=== PATIENT | male | born 2000 | race Hispanic/Latino ===

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

== ENCOUNTER 2021-04-10 22:20 | Emergency (ER) | payer MEDICAID ==
[~2021-04-10] VITALS: Ht 175.3 cm; Wt 93.0 kg
[2021-04-10 22:23] VITALS: BP 143/83
== END 2021-04-11 03:45 | disposition left against medical advice (07) ==
LOC: EDH 22:20
DX: R07.89 Other chest pain (principal); R05 Cough; Z53.21 Procedure and treatment not carried out due to patient leaving prior to being seen by health care provider

== ENCOUNTER 2021-04-12 01:22 | Emergency (ER) | payer MEDICAID ==
[~2021-04-12] VITALS: Ht 175.3 cm; Wt 93.4 kg
[2021-04-12 01:30] VITALS: BP 141/75
[2021-04-12 02:48] VITALS: BP 129/56
[2021-04-12 03:49] LABS: BASOPHILS % (AUTO) 0.6 % (0.0-5.0); EOSINOPHILS % (AUTO) 4.8 % (0.0-8.0); HEMATOCRIT 46.2 % (42-54); LYMPHOCYTES % (AUTO) 21.8 % (21.0-51.0); MEAN CORPUSCULAR HEMOGLOBIN 29.8 pg (27.0-33.0); MEAN CORPUSCULAR HGB CONC 32.7 g/dL (32.0-36.0); MEAN CORPUSCULAR VOLUME 91.1 fL (80-100); MONOCYTES % (AUTO) 11.2 % (3.0-13.0); NEUTROPHILS % (AUTO) 59.5 % (40.0-77.0); PLATELET COUNT (AUTO) 296 K/uL (130-400); RED BLOOD CELL COUNT(AUTO) 5.07 MIL/uL (4.50-6.20); RED CELL DISTRIBUTION WIDTH 12.7 % (11.0-15.5)
[2021-04-12 03:51] LABS: APPEARANCE,URINE Clear (CLEAR); BILIRUBIN,URINE Negative (NEGATIVE); COLOR,URINE Yellow (YELLOW); GLUCOSE, URINE (UA) Negative (NEGATIVE); KETONES,URINE Negative (NEGATIVE); LEUKOCYTE ESTERASE ,URINE Negative (NEGATIVE); NITRATE,URINE Negative (NEGATIVE); OCCULT BLOOD,URINE Negative (NEGATIVE); PH,URINE 6.5 (5.0-8.0); PROTEIN,URINE Negative (NEGATIVE)
[2021-04-12 03:55] LABS: CRP QUANTITATIVE 32.9 mg/L (0.00-9.0); POTASSIUM 4.2 mmol/L (3.5-5.1)
[2021-04-12 04:33] VITALS: BP 123/62
[2021-04-12] MEDS ORDERED: IOHEXOL-350 75 ML VIAL IV ONE (06:28)
[2021-04-12 07:33] VITALS: BP 117/60
[2021-04-12 10:44] VITALS: BP 119/85
== END 2021-04-12 10:45 | disposition home or self-care (01) ==
LOC: EDH 01:22
DX: R07.89 Other chest pain (principal); M54.6 Pain in thoracic spine; R10.9 Unspecified abdominal pain; J45.909 Unspecified asthma, uncomplicated; F17.200 Nicotine dependence, unspecified, uncomplicated; R06.02 Shortness of breath
CPT/HCPCS: 36415; 71045; 74018; 74177; 80048; 81003; 85025; 86140; 93005 ×2; 99285; J3490; Q9967

== ENCOUNTER 2021-12-08 23:09 | Emergency (ER) | payer MEDICAID ==
[~2021-12-08] VITALS: Ht 177.8 cm; Wt 95.3 kg
[2021-12-09 00:25] LABS: CREATININE 1.1 mg/dL (0.5-1.5); POTASSIUM 4.3 mmol/L (3.5-5.1)
[2021-12-09] MEDS: ONDANSETRON ODT 4MG TAB SL ONE (00:27)
[2021-12-09 00:29] LABS: ALBUMIN 4.3 g/dL (3.5-5.0); BILIRUBIN,TOTAL 0.4 mg/dL (0.2-1.0); TOTAL PROTEIN, SERUM 8.6 g/dL (6.0-8.3)
[2021-12-09 00:31] LABS: APPEARANCE,URINE Clear (CLEAR); BILIRUBIN,URINE Small (NEGATIVE); COLOR,URINE Dark Yellow (YELLOW); GLUCOSE, URINE (UA) Negative (NEGATIVE); KETONES,URINE Trace mg/dL (NEGATIVE); LEUKOCYTE ESTERASE ,URINE Negative (NEGATIVE); NITRATE,URINE Negative (NEGATIVE); OCCULT BLOOD,URINE Negative (NEGATIVE); PH,URINE 5.5 (5.0-8.0); PROTEIN,URINE POS 1+ mg/dL (NEGATIVE)
[2021-12-09 00:50] VITALS: BP 131/68
[2021-12-09 00:51] LABS: BASOPHILS % (AUTO) 0.2 % (0.0-5.0); EOSINOPHILS % (AUTO) 2.2 % (0.0-8.0); LYMPHOCYTES % (AUTO) 7.5 % (21.0-51.0); MEAN CORPUSCULAR HEMOGLOBIN 29.1 pg (27.0-33.0); MEAN CORPUSCULAR HGB CONC 32.9 g/dL (32.0-36.0); MEAN CORPUSCULAR VOLUME 88.2 fL (80-100); MONOCYTES % (AUTO) 7.8 % (3.0-13.0); NEUTROPHILS % (AUTO) 81.6 % (40.0-77.0); PLATELET COUNT (AUTO) 287 K/uL (130-400); RED BLOOD CELL COUNT(AUTO) 5.78 MIL/uL (4.50-6.20); WHITE BLOOD COUNT (AUTO) 13.5 K/uL (4.8-10.8)
[2021-12-09] MEDS ORDERED: ONDA4TAB10 PO (01:09)
[2021-12-09 01:18] LABS: BACTERIA,URINE Rare /HPF (None Seen); MUCUS,URINE Many LPF (None Seen); RBC,URINE 0-1 /HPF (0-1); SQUAMOUS EPITHELIAL CELL,UR Few /HPF (0-2); WBC,URINE 0-1 /HPF (0-1)
== END 2021-12-09 01:12 | disposition home or self-care (01) ==
LOC: EDH 23:09
DX: K30 Functional dyspepsia (principal); R11.2 Nausea with vomiting, unspecified; Z20.822 Contact with and (suspected) exposure to COVID-19; F17.200 Nicotine dependence, unspecified, uncomplicated
CPT/HCPCS: 36415; 80053; 81001; 85025; 87635; 87804 ×2; 99283; C9803

== ENCOUNTER 2022-03-20 23:10 | Emergency (ER) | payer MEDICAID ==
[~2022-03-20] VITALS: Ht 175.3 cm; Wt 86.2 kg
[~2022-03-20 23:10] MED LIST: ONDA4TAB10 PO
[2022-03-20 23:12] VITALS: BP 148/80
[2022-03-21] MEDS ORDERED: IBUP-2071 PO (00:30)
[2022-03-21] MEDS ORDERED: BENZ-39 PO (00:30)
== END 2022-03-21 00:54 | disposition home or self-care (01) ==
LOC: EDH 23:10
DX: U07.1 COVID-19 (principal); F17.200 Nicotine dependence, unspecified, uncomplicated; Z79.899 Other long term (current) drug therapy
CPT/HCPCS: 99283; 87635; 87804 ×2; C9803